=== PATIENT | male | born 1990 | race Caucasian/White ===

== ENCOUNTER 2017-12-06 06:10 | Emergency (ER) | payer BC, MEDICAID ==
[2017-12-06] MEDS ORDERED: Meclizine 12.5 MG Tab PO ONE (06:44)
[2017-12-06] MEDS ORDERED: Ondansetron 4 MG/2 ML SDV IVPUSH ONE (06:44)
[2017-12-06] MEDS ORDERED: Sodium Chloride 0.9% 1,000 ML IV ONE (06:44)
--- NOTE | 2017-12-06 06:51 | EDM.PDOC ---
<Sarah Tello Afshin - Last Filed: 12/06/17 06:45> ED HPI GENERAL MEDICAL PROBLEM - General Chief Complaint: Gastrointestinal Problem Stated Complaint: DIZZINESS/NAUSEA X 2 DAYS Time Seen by Provider: 12/06/17 06:32 Source of Information: Reports: Patient History Limitations: Reports: No Limitations - History of Present Illness INITIAL COMMENTS - FREE TEXT/NARRATIVE: 27 y/o M with remote hx Meniere's dz presents with severe dizziness x 2-3 days. Doesn't recall exact onset. Has severe nearly constant room spinning sensation. Waxes and wanes. Worse with head movements but also has dizziness at rest. He did have some alcoholic beverages 3 days ago, no additional provoking factors. He also has ringing in his left hear. States he has had ringing in that ear since being diagnosed with Meniere's as a teenager, but that the tinnitus is much worse now. Very nauseated, hasn't had much to drink and nothing to eat since this started. No vomiting. No diarrhea. No fever/recent illness. No abdominal pain. No additional complaint. - Related Data Allergies Allergy/AdvReac Type Severity Reaction Status Date / Time No Known Allergies Allergy Verified 12/06/17 06:17 Home Meds: Home Meds Meclizine [Antivert] 25 mg PO Q6H PRN #20 tab 12/06/17 [Rx] Ondansetron [Zofran ODT] 4 mg PO Q6H PRN #20 tab.dis 12/06/17 [Rx] Past Medical History HEENT History: Reports: Impaired Vision Other HEENT History: Wears glasses, Tinnitis Psychiatric History: Reports: Depression - Past Surgical History GI Surgical History: Reports: Hernia Repair/Other Social & Family History - Tobacco Use Smoking Status *Q: Current Every Day Smoker Years of Tobacco use: 5 Packs/Tins Daily: 0.1 - Alcohol Use Days Per Week of Alcohol Use: 3 Number of Drinks Per Day: 2 Total Drinks Per Week: 6 - Recreational Drug Use Recreational Drug Use: No ED ROS GENERAL - Review of Systems Review Of Systems: See Below Constitutional: Reports: Malaise. Denies: Fever HEENT: Reports: Vertigo Respiratory: Denies: Shortness of Breath, Cough Cardiovascular: Denies: Chest Pain Endocrine: Reports: No Symptoms GI/Abdominal: Denies: Abdominal Pain : Reports: No Symptoms Musculoskeletal: Reports: No Symptoms Skin: Reports: No Symptoms Neurological: Reports: Dizziness. Denies: Headache Psychiatric: Reports: No Symptoms ED EXAM, GI/ABD - Physical Exam Exam: See Below Exam Limited By: No Limitations General Appearance: Alert, Mild Distress Eyes: Bilateral: Normal Appearance, Nystagmus (horizontal ) Ears: Normal External Exam, Normal Canal, Hearing Grossly Normal, Normal TMs Nose: Normal Inspection Throat/Mouth: Normal Inspection, Normal Oropharynx, Normal Voice Head: Atraumatic, Normocephalic Neck: Normal Inspection Respiratory/Chest: No Respiratory Distress, Lungs Clear, Normal Breath Sounds Cardiovascular: Normal Peripheral Pulses, Regular Rate, Rhythm GI/Abdominal Exam: Soft Back Exam: Normal Inspection Extremities: Normal Inspection Neurological: Alert, Oriented, CN II-XII Intact, Normal Cognition, No Motor/ Sensory Deficits Psychiatric: Normal Affect, Normal Mood Skin Exam: Warm, Dry, Intact, Normal Color, No Rash Course - Vital Signs Last Recorded V/S: Last Vital Signs Temp 96.3 F 12/06/17 06:17 Pulse 111 H 12/06/17 06:17 Resp 16 12/06/17 06:17 BP 174/112 H 12/06/17 06:17 Pulse Ox 100 12/06/17 06:17 - Orders/Labs/Meds Meds: Medications Discontinued Medications Generic Name Dose Route Start Last Admin Trade Name Adenq PRN Reason Stop Dose Admin Diazepam 10 mg 12/06/17 06:44 12/06/17 06:56 Valium IVPUSH 12/06/17 06:45 10 mg ONETIME ONE Administration Sodium Chloride 1,000 mls @ 1,000 mls/hr 12/06/17 06:44 12/06/17 06:53 Normal Saline IV 12/06/17 07:43 1,000 mls/hr ONETIME ONE Administration Meclizine HCl 25 mg 12/06/17 06:44 12/06/17 06:54 Antivert PO 12/06/17 06:45 25 mg ONETIME ONE Administration Ondansetron HCl 4 mg 12/06/17 06:44 12/06/17 06:53 Zofran IVPUSH 12/06/17 06:45 4 mg ONETIME ONE Administration - Re-Assessments/Exams Free Text/Narrative Re-Assessment/Exam: 12/06/17 06:49 Severe dizziness/nausea/tinnitus in patient with prior history of Meneire's disease. Suspect exacerbation of the same. States he used to be sensitive to caffeine and salt and was able to avoid exacerbations by controlling his diet. Today his symptoms are severe enough that I will treat with IV diazepam, zofran , meclizine, and IV fluids. Will sign out to Dr. Diaz who can reevaluate him after meds. Departure - Departure Disposition: Home, Self-Care 01 Clinical Impression: Vertigo - Discharge Information Prescriptions: Meclizine [Antivert] 25 mg PO Q6H PRN #20 tab PRN Reason: Dizziness Ondansetron [Zofran ODT] 4 mg PO Q6H PRN #20 tab.dis PRN Reason: Nausea\vomiting Referrals: PCP,None [Primary Care Provider] - Thomas Branch MD [Ordering Only Provider] - Forms: ED Department Discharge, ED Return to Work/School Form Additional Instructions: Drink plenty of fluids. Take the zofran every 6 hours as needed for nausea and vomiting. Take the antivert every 6 hours as needed for dizziness. Follow up with Dr Branch. He is an ENT doctor in [place]. Please return if you are worse. <Eugenio Diaz - Last Filed: 12/06/17 08:34> Course - Re-Assessments/Exams Free Text/Narrative Re-Assessment/Exam: 12/06/17 08:[address] Tello. The patient is feeling better. I will discharge him home on some antivert and zofran. Departure - Departure Time of Disposition: 08:30 Condition: Good
== END 2017-12-06 08:45 | disposition home or self-care (01) ==
LOC: JD.ED 06:10
DX: R42 Dizziness and giddiness (principal); F17.210 Nicotine dependence, cigarettes, uncomplicated
CPT/HCPCS: 96361; 96374; 96375; 99284; A9270; J2405; J3360; J7040

== ENCOUNTER 2018-01-22 13:10 | Emergency (ER) | payer BC ==
[2018-01-22] MEDS ORDERED: Ondansetron 4 MG Tab.DIS PO ONE (13:53)
[2018-01-22] MEDS ORDERED: Sodium Chloride 0.9% 10 ML Syringe FLUSH PRN (14:14)
[2018-01-22] MEDS ORDERED: Famotidine 20 MG/2 ML SDV IVPUSH ONE (14:14)
[2018-01-22] MEDS ORDERED: Sodium Chloride 0.9% 1,000 ML IV SCH (14:15)
--- NOTE | 2018-01-22 16:21 | EDM.PDOC ---
ED HPI GENERAL MEDICAL PROBLEM - General Chief Complaint: Gastrointestinal Problem Stated Complaint: VOMITING BLOOD AND DIZZY Time Seen by Provider: 01/22/18 13:52 Source of Information: Reports: Patient, RN Notes Reviewed - History of Present Illness INITIAL COMMENTS - FREE TEXT/NARRATIVE: 27-year-old male has been ill for about the past 4 days with upper abdominal discomfort, nausea and vomiting. His been no diarrhea. In tenderness to be nauseated today, not able to eat much. He has not vomited today. He does feel some burning discomfort of his upper mid abdomen at this time. Mouth feels dry. Abdominal Pain Score (Numeric/FACES): 0 - Related Data Allergies Allergy/AdvReac Type Severity Reaction Status Date / Time No Known Allergies Allergy Verified 01/22/18 13:45 Home Meds: Home Meds . [No Known Home Meds] 01/22/18 [History] Past Medical History HEENT History: Reports: Impaired Vision Other HEENT History: Wears glasses, Tinnitis Psychiatric History: Reports: Anxiety, Depression - Past Surgical History GI Surgical History: Reports: Hernia Repair/Other Social & Family History - Tobacco Use Smoking Status *Q: Never Smoker Years of Tobacco use: 5 Packs/Tins Daily: 0.1 - Alcohol Use Days Per Week of Alcohol Use: 3 Number of Drinks Per Day: 2 Total Drinks Per Week: 6 - Recreational Drug Use Recreational Drug Use: No ED ROS GENERAL - Review of Systems Review Of Systems: See Below Constitutional: Denies: Fever, Chills, Diaphoresis HEENT: Denies: Throat Pain Respiratory: Denies: Shortness of Breath, Pleuritic Chest Pain Cardiovascular: Denies: Chest Pain GI/Abdominal: Reports: Abdominal Pain, Nausea, Vomiting. Denies: Diarrhea Musculoskeletal: Denies: Back Pain Skin: Reports: No Symptoms Neurological: Reports: Dizziness (Gone) ED EXAM, GI/ABD - Physical Exam Exam: See Below General Appearance: Alert, No Apparent Distress Eyes: Bilateral: Normal Appearance Throat/Mouth: Other Head: No: Facial Swelling (Oral mucosa is dry) Neck: Supple, Full Range of Motion Respiratory/Chest: No Respiratory Distress, Lungs Clear, Normal Breath Sounds Cardiovascular: Regular Rate, Rhythm GI/Abdominal Exam: Soft, Tender (There is diffuse tenderness of the upper mid abdomen, lower abdomen soft and nontender). No: Guarding, Rebound Back Exam: No: CVA Tenderness (L), CVA Tenderness (R) Extremities: Normal Inspection, Normal Range of Motion Neurological: Alert, Oriented, No Motor/Sensory Deficits Skin Exam: Warm, Dry, Normal Color Course - Vital Signs Last Recorded V/S: Last Vital Signs Temp 96.8 F 01/22/18 13:45 Pulse 102 H 01/22/18 13:45 Resp BP 136/101 H 01/22/18 13:45 Pulse Ox 96 01/22/18 13:45 - Orders/Labs/Meds Orders: Active Orders 24 hr Category Date Time Status Peripheral IV Care [RC] . DIRECTED Care 01/22/18 14:15 Active Peripheral IV Insertion Adult [OM.PC] Stat Oth 01/22/18 14:14 Ordered Labs: Laboratory Tests 01/22/18 01/22/18 Range/Units 14:19 14:19 WBC 8.56 (4.23-9.07) K/mm3 RBC 5.76 (4.63-6.08) M/mm3 Hgb 16.6 (13.7-17.5) gm/L Hct 47.0 (40.1-51.0) % MCV 81.6 (79.0-92.2) fl MCH 28.8 (25.7-32.2) pg MCHC 35.3 (32.2-35.5) g/dl RDW Std Deviation 39.8 (35.1-43.9) fL Plt Count 306 (163-337) K/mm3 MPV 8.7 L (9.4-12.3) fl Neut % (Auto) 70.6 H (34.0-67.9) % Lymph % (Auto) 20.6 L (21.8-53.1) % Mcdonald % (Auto) 8.3 (5.3-12.2) % Eos % (Auto) 0 L (0.8-7.0) Baso % (Auto) 0.1 (0.1-1.2) % Neut # (Auto) 6.05 H (1.78-5.38) K/mm3 Lymph # (Auto) 1.76 (1.32-3.57) K/mm3 Mcdonald # (Auto) 0.71 (0.30-0.82) K/mm3 Eos # (Auto) 0.00 L (0.04-0.54) K/mm3 Baso # (Auto) 0.01 (0.01-0.08) K/mm3 Sodium 143 (136-145) mEq/L Potassium 3.8 (3.5-5.1) mEq/L Chloride 105 (98-107) mEq/L Carbon Dioxide 25 (21-32) mEq/L Anion Gap 16.8 H (5-15) BUN 20 H (7-18) mg/dL Creatinine 1.0 (0.7-1.3) mg/dL Est Cr Clr Drug Dosing 109.98 mL/min Estimated GFR (MDRD) > 60 (>60) mL/min BUN/Creatinine Ratio 20.0 H (14-18) Glucose 102 (74-106) mg/dL Calcium 9.6 (8.5-10.1) mg/dL Total Bilirubin 1.0 (0.2-1.0) mg/dL AST 26 (15-37) U/L ALT 87 H (16-63) U/L Alkaline Phosphatase 64 (46-116) U/L Total Protein 8.5 H (6.4-8.2) g/dl Albumin 4.6 (3.4-5.0) g/dl Globulin 3.9 gm/dL Albumin/Globulin Ratio 1.2 (1-2) Lipase 91 (73-393) U/L Meds: Medications Discontinued Medications Generic Name Dose Route Start Last Admin Trade Name Freq PRN Reason Stop Dose Admin Famotidine 20 mg 01/22/18 14:14 01/22/18 14:25 Pepcid IVPUSH 01/22/18 14:15 20 mg ONETIME ONE Administration Sodium Chloride 1,000 mls @ 999 mls/hr 01/22/18 14:15 01/22/18 14:24 Normal Saline IV 999 mls/hr ONETIME RBUA Administration Ondansetron HCl 4 mg 01/22/18 13:53 01/22/18 14:10 Zofran Odt PO 01/22/18 13:54 4 mg ONETIME ONE Administration Sodium Chloride 10 ml 01/22/18 14:14 01/22/18 14:25 Saline Flush FLUSH 10 ml ASDIRECTED PRN Administration Keep Vein Open Departure - Departure Time of Disposition: 16:19 Disposition: Home, Self-Care 01 Condition: Fair Clinical Impression: Gastritis Qualifiers: Gastritis type: unspecified gastritis Chronicity: unspecified Gastritis bleeding: without bleeding Qualified Code(s): K29.70 - Gastritis, unspecified, without bleeding Vomiting Qualifiers: Vomiting type: unspecified Vomiting Intractability: non-intractable - Discharge Information Instructions: Gastritis, Adult, [id number] Referrals: PCP,None [Primary Care Provider] - Forms: ED Department Discharge, ED Return to Work/School Form Additional Instructions: Clear liquids until late this evening, then very careful bland diet as tolerated , avoid all fatty and spicy foods for now, avoid milk and dairy products for a couple of days. Zantac to twice daily for the next 1-2 weeks, Zofran if needed for any further nausea or vomiting, follow-up clinic if not much better and if not getting back to normal within 3-4 days as expected, return to ED as needed if symptoms worsening in any way. - My Orders Last 24 Hours: My Active Orders 01/22/18 14:14 Peripheral IV Insertion Adult [OM.PC] Stat 01/22/18 14:15 Peripheral IV Care [RC] . DIRECTED - Assessment/Plan Last 24 Hours: My Active Orders 01/22/18 14:14 Peripheral IV Insertion Adult [OM.PC] Stat 01/22/18 14:15 Peripheral IV Care [RC] . DIRECTED
== END 2018-01-22 16:25 | disposition home or self-care (01) ==
LOC: JD.ED 13:10
DX: K29.70 Gastritis, unspecified, without bleeding (principal); F41.9 Anxiety disorder, unspecified; F32.9 Major depressive disorder, single episode, unspecified
CPT/HCPCS: 36415; 80053; 83690; 85025; 96361; 96374; 99284; A9270; J7040; J7050; 99283

== ENCOUNTER 2018-10-06 06:09 | Emergency (ER) | payer BC ==
--- NOTE | 2018-10-06 07:03 | EDM.PDOC ---
ED HPI GENERAL MEDICAL PROBLEM - General Chief Complaint: General Stated Complaint: DIZZY/NAUSEATED Time Seen by Provider: 10/06/18 06:31 Source of Information: Reports: Patient, RN Notes Reviewed History Limitations: Reports: No Limitations - History of Present Illness INITIAL COMMENTS - FREE TEXT/NARRATIVE: The patient states that he has had a history of tinnitus since he was a child, and recurrent episodes of vertigo with nausea and sometimes vomiting since he was a teenager. He states that he has previously been diagnosed with Mnire disease, although upon testing by an ENT (Dr. Victoria?), there is some question over whether or not he has it. He has been treated with meclizine in the past, with success. The patient now presents to the ED stating that he has had vertiginous symptoms since this past 10/02/2017, but that it is much worse today, along with nausea and emesis since 03:00 this morning. His vertigo is worse in the morning. He states that he is usually able to walk around for about 5 minutes, and it will resolve, but not today. The patient has chronic tinnitus, that is no worse than usual. He has a decreased hearing in both ears, worse on the left than the right. No recent illness or fever. Here in the ED, with the patient lying on a gurney, he states that his vertigo is quite minimal, and he has no nausea. The patient does not have a PCP. - Related Data Allergies Allergy/AdvReac Type Severity Reaction Status Date / Time No Known Allergies Allergy Verified 01/22/18 13:45 Home Meds: Home Meds Meclizine [Antivert] 1 tab PO Q6H PRN #40 tab 10/06/18 [Rx] Ondansetron [Zofran ODT] 1 tab PO Q8H PRN #10 tab.dis 10/06/18 [Rx] Past Medical History HEENT History: Reports: Impaired Vision, Other (See Below) (Mnire disease, likely) Other HEENT History: Wears glasses Musculoskeletal History: Reports: Back Pain, Chronic Psychiatric History: Reports: Anxiety (untreated since February 2018), Depression ( untreated since February 2018) Endocrine/Metabolic History: Reports: Obesity/BMI 30+ - Past Surgical History HEENT Surgical History: Reports: Oral Surgery (wisdom teeth extraction) GI Surgical History: Reports: Hernia, Inguinal (as an infant) Social & Family History - Family History Family Medical History: Noncontributory - Tobacco Use Smoking Status *Q: Former Smoker Tobacco Use Within Last Twelve Months: Smokeless Tobacco (Chews 3 pinches per day) Years of Tobacco use: 8 Packs/Tins Daily: 0.3 Month/Year Tobacco Last Used: Quit 2016 - Caffeine Use Caffeine Use: Reports: None - Alcohol Use Alcohol Use History: Yes Alcohol Use Frequency: Socially (1-2 beers per day) - Recreational Drug Use Recreational Drug Use: Yes Drug Use in Last 12 Months: No Recreational Drug Type: Reports: Marijuana/Hashish (last smoked around 2013) - Living Situation & Occupation Living situation: Reports: , Alone 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 ED EXAM, GENERAL - Physical Exam Exam: See Below Exam Limited By: No Limitations General Appearance: Alert, WD/WN, No Apparent Distress Eye Exam: Bilateral Eye: EOMI, Normal Inspection, PERRL Ears: Normal External Exam, Normal Canal, Normal TMs Nose: Normal Inspection, Normal Mucosa, No Blood Throat/Mouth: Normal Inspection, Normal Lips, Normal Teeth, Normal Gums, Normal Oropharynx, Normal Voice, No Airway Compromise Head: Atraumatic, Normocephalic Neck: Normal Inspection, Supple, Non-Tender, Full Range of Motion. No: Lymphadenopathy (L), Lymphadenopathy (R) Respiratory/Chest: No Respiratory Distress, Lungs Clear, Normal Breath Sounds, No Accessory Muscle Use Cardiovascular: Normal Peripheral Pulses, Regular Rate, Rhythm, No Gallop, No JVD, No Murmur, No Rub Peripheral Pulses: 4+: Radial (L), Radial (R) GI/Abdominal: Normal Bowel Sounds, Soft, Non-Tender, No Organomegaly, No Distention, No Abnormal Bruit, No Mass, Other (Obese) (Male) Exam: Deferred Rectal (Males) Exam: Deferred Back Exam: Normal Inspection, Full Range of Motion, NT Extremities: Normal Inspection, Normal Range of Motion, Normal Capillary Refill Neurological: Alert, Oriented, CN II-XII Intact, Normal Cognition, No Motor/ Sensory Deficits, Other (Cathryn-Hallpike maneuvers failed to induce either nystagmus or vertigo, bilaterally) Psychiatric: Normal Affect Skin Exam: Warm, Dry, Intact, Normal Color, No Rash Course - Vital Signs Last Recorded V/S: Last Vital Signs Temp 36.6 C 10/06/18 06:21 Pulse 119 H 10/06/18 06:21 Resp 18 10/06/18 06:21 BP 164/111 H 10/06/18 06:21 Pulse Ox 97 10/06/18 06:21 - Orders/Labs/Meds Orders: Active Orders 24 hr Category Date Time Status Meclizine [Antivert] Med 10/06/18 06:57 Stat 25 mg PO ONETIME STA - Re-Assessments/Exams Free Text/Narrative Re-Assessment/Exam: 10/06/18 06:58 The patient appears to be suffering from a flare of his Mnire disease. We discussed dietary and behavioral modifications that might improve his symptoms, such as trying to limit dietary intake of salt and MSG, caffeine and alcohol, and have the patient quit chewing tobacco. For today's purposes, the patient will receive a dose of meclizine here in the ED, and I will prescribe both meclizine and Zofran. If these measures do not help, I would like him to follow- up with his ENT, for consideration of diuretics and/or glucocorticoids. Departure - Departure Time of Disposition: 07:00 Disposition: Home, Self-Care 01 Condition: Fair Clinical Impression: Mnire's disease - Discharge Information *PRESCRIPTION DRUG MONITORING PROGRAM REVIEWED*: Not Applicable *COPY OF PRESCRIPTION DRUG MONITORING REPORT IN PATIENT KEL: Not Applicable Referrals: PCP,None [Primary Care Provider] - Additional Instructions: You were seen in the emergency room for vertigo (the sensation that the room is spinning) and nausea with vomiting. Your symptoms are consistent with an exacerbation of Mnire disease. You have been started on the anti-vertigo medicine meclizine (Antivert). A prescription for Antivert, along with a prescription for the anti-nausea medicine Zofran, has been sent to the [facility], [address] [place] [address]. Take one tablet of meclizine up to every 6 hours, as needed for vertigo. Meclizine may cause sleepiness, so use caution if driving or operating heavy machinery. Dissolve one tablet of Zofran on your tongue up to every 8 hours, as needed for nausea/vomiting. As discussed, your symptoms may improve if you consume: A low-salt diet (no more than 2-3 g per day), as well as low MSG A low caffeine diet (no more than 1 caffeinated beverage per day) A low alcohol diet (no more than 1 alcoholic beverage per day) Eliminate nicotine, including chewing tobacco Reduce stress in your life If your symptoms persist, despite meclizine and dietary changes, please follow- up with your ENT to discuss further options. If any other problems, please do not hesitate to return to the ER. - My Orders Last 24 Hours: My Active Orders 10/06/18 06:57 Meclizine [Antivert] 25 mg PO ONETIME STA - Assessment/Plan Last 24 Hours: My Active Orders 10/06/18 06:57 Meclizine [Antivert] 25 mg PO ONETIME STA
== END 2018-10-06 07:25 | disposition home or self-care (01) ==
LOC: JD.ED 06:09
DX: H81.03 Meniere's disease, bilateral (principal); Z87.891 Personal history of nicotine dependence; Z98.890 Other specified postprocedural states
CPT/HCPCS: 99283; A9270

== ENCOUNTER 2018-11-28 05:39 | Emergency (ER) | payer BC ==
--- NOTE | 2018-11-28 06:08 | EDM.PDOC ---
ED HPI GENERAL MEDICAL PROBLEM - General Chief Complaint: General Stated Complaint: VERDIGO/DIZZY FOR 6 DAYS Time Seen by Provider: 11/28/18 05:47 - History of Present Illness INITIAL COMMENTS - FREE TEXT/NARRATIVE: 28-year-old male presents emergency room with dizziness for the last 6 days. he has tried meclizine up to twice a day with minimal success. Patient has a history of Mnire's disease. He has not followed up with scissors and throat doctor in quite some time. Patient has chronic tinnitus. The patient has his symptoms aggravated by change in position usually from lying to sitting or sitting to standing turning right to left does not seem to make it much worse. Patient denies any recent illness. - Related Data Allergies Allergy/AdvReac Type Severity Reaction Status Date / Time No Known Allergies Allergy Verified 11/28/18 05:49 Home Meds: Home Meds Meclizine [Antivert] 1 tab PO Q6H PRN #40 tab 10/06/18 [Rx] Ondansetron [Zofran ODT] 1 tab PO Q8H PRN #10 tab.dis 10/06/18 [Rx] Meclizine [Antivert] 25 mg PO Q6H PRN #30 tab 11/28/18 [Rx] Past Medical History HEENT History: Reports: Impaired Vision, Other (See Below) Other HEENT History: Wears glasses Musculoskeletal History: Reports: Back Pain, Chronic Neurological History: Reports: Migraines Psychiatric History: Reports: Anxiety, Depression Endocrine/Metabolic History: Reports: Obesity/BMI 30+ - Past Surgical History HEENT Surgical History: Reports: Oral Surgery GI Surgical History: Reports: Hernia, Inguinal Social & Family History - Family History Family Medical History: Noncontributory - Tobacco Use Smoking Status *Q: Never Smoker - Caffeine Use Caffeine Use: Reports: Coffee, Soda - Recreational Drug Use Recreational Drug Use: Yes Drug Use in Last 12 Months: No Recreational Drug Type: Reports: Marijuana/Hashish - Living Situation & Occupation Living situation: Reports: , Alone 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 Denies: Ear Discharge, Ear Pain Respiratory: Reports: No Symptoms Cardiovascular: Reports: No Symptoms GI/Abdominal: Reports: Nausea. Denies: Abdominal Pain ED EXAM, GENERAL - Physical Exam Exam: See Below Exam Limited By: No Limitations General Appearance: Alert, No Apparent Distress, Other (Hallpike's maneuver is negative for dizziness or nystagmus) Eye Exam: Bilateral Eye: Normal Inspection Ears: Normal External Exam, Normal Canal, Normal TMs Nose: Normal Inspection, Normal Mucosa, No Blood Throat/Mouth: Normal Inspection, Normal Lips, Normal Teeth, Normal Gums, Normal Oropharynx, Normal Voice, No Airway Compromise Head: Atraumatic, Normocephalic Neck: Normal Inspection, Supple, Non-Tender, Full Range of Motion Respiratory/Chest: No Respiratory Distress, Lungs Clear, Normal Breath Sounds Cardiovascular: Regular Rate, Rhythm, No Edema Course - Vital Signs Last Recorded V/S: Last Vital Signs Temp 36.4 C 11/28/18 05:45 Pulse 114 H 11/28/18 05:45 Resp 20 11/28/18 05:45 BP 152/107 H 11/28/18 05:45 Pulse Ox 97 11/28/18 05:45 Departure - Departure Time of Disposition: 06:08 Disposition: Home, Self-Care 01 Clinical Impression: Dizziness - Discharge Information Prescriptions: Meclizine [Antivert] 25 mg PO Q6H PRN #30 tab PRN Reason: Dizziness Referrals: PCP,None [Primary Care Provider] - Forms: ED Department Discharge Additional Instructions: Return to the emergency room if any questions or problems. Establish with a fisher eel spear. Use meclizine as directed.
== END 2018-11-28 06:30 | disposition home or self-care (01) ==
LOC: JD.ED 05:39
DX: R42 Dizziness and giddiness (principal); F41.9 Anxiety disorder, unspecified; Z79.899 Other long term (current) drug therapy
CPT/HCPCS: 99283

== ENCOUNTER 2019-08-22 10:25 | Emergency (ER) | payer BC, OTHER ==
[2019-08-22] MEDS ORDERED: FLU Vacc QS2019-20(6MOS+)/PF 60 MCG/0.5 ML SYRINGE IM ONE (11:00)
--- NOTE | 2019-08-22 12:03 | EDM.PDOC ---
ED HPI GENERAL MEDICAL PROBLEM - General Chief Complaint: Cardiovascular Problem Stated Complaint: HIGH BLOOD PRESSURE AND LEG SPASMS Time Seen by Provider: 08/22/19 11:10 Source of Information: Reports: Patient, RN Notes Reviewed History Limitations: Reports: No Limitations - History of Present Illness INITIAL COMMENTS - FREE TEXT/NARRATIVE: Patient is a 29-year-old male who presents to the ED for the evaluation of increased blood pressure reading, and right leg twitching. The patient went to the [facility] for evaluation, as he states his primary care provider is Dr. Corbin, but was sent to the ER for further evaluation. Patient states that his blood pressure at that clinic was 158/120. Patient's blood pressure at our ER at time of triage is 146/108, and this continues to fall as the patient is resting in the room. Patient notes that he has been on hydrochlorothiazide/triamterene 25/37.5 milligrams, for around for 4 months now. The patient notes that the leg twitching started after he started taking this medication. He was started on this medication due to increased blood pressure readings, and also his history of Mnire's disease, his primary care physician thought maybe would help his dizziness. The patient notes that he did feel somewhat dizzy this morning, and did take his dose of meclizine, this seemed to help that. The patient states that his right leg feels weak at times , as the twitching causes lots of muscle spasms. He notes these are not painful however. He further denies any chest pain or shortness of breath, or any low back pain. - Related Data Allergies Allergy/AdvReac Type Severity Reaction Status Date / Time No Known Allergies Allergy Verified 08/22/19 10:42 Home Meds: Home Meds Meclizine [Antivert] 25 mg PO Q6H PRN #30 tab 11/28/18 [Rx] HCTZ/Triamterene [Dyazide 25-37.5 MG] 1 cap PO DAILY 08/22/19 [History] LORazepam 0.5 mg PO DAILY PRN 08/22/19 [History] Lactobacillus Acidophilus [Probiotic] 1 each PO DAILY 08/22/19 [History] Magnesium Chloride [Slow-Mag] 71.5 mg PO BID #20 tablet. 08/22/19 [Rx] Multivitamin [Multivitamins] 1 each PO DAILY 08/22/19 [History] Orphenadrine [Norflex] 100 mg PO BID PRN #20 tab 08/22/19 [Rx] PARoxetine [Paxil] 20 mg PO DAILY 08/22/19 [History] Past Medical History HEENT History: Reports: Impaired Vision Other HEENT History: Wears glasses Cardiovascular History: Reports: Hypertension Musculoskeletal History: Reports: Back Pain, Chronic Neurological History: Reports: Migraines Psychiatric History: Reports: Anxiety, Depression Endocrine/Metabolic History: Reports: Obesity/BMI 30+ - Past Surgical History HEENT Surgical History: Reports: Oral Surgery GI Surgical History: Reports: Hernia, Inguinal Social & Family History - Family History Family Medical History: Noncontributory - Tobacco Use Smoking Status *Q: Never Smoker - Caffeine Use Caffeine Use: Reports: Coffee, Soda - Recreational Drug Use Recreational Drug Use: No - Living Situation & Occupation Living situation: Reports: , Alone 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 Denies: Numbness, Tingling ED EXAM, GENERAL - Physical Exam Exam: See Below Exam Limited By: No Limitations General Appearance: Alert, WD/WN, No Apparent Distress Eye Exam: Bilateral Eye: EOMI, Normal Inspection, PERRL Throat/Mouth: Normal Inspection, Normal Lips, Normal Teeth, Normal Gums, Normal Oropharynx, Normal Voice, No Airway Compromise Head: Atraumatic, Normocephalic Neck: Normal Inspection Respiratory/Chest: No Respiratory Distress, Lungs Clear, Normal Breath Sounds, No Accessory Muscle Use, Chest Non-Tender Cardiovascular: Normal Peripheral Pulses, Regular Rate, Rhythm, No Edema, No Murmur Peripheral Pulses: 3+: Radial (L), Radial (R) Extremities: Normal Inspection (Obvious muscle twitching noted to R quadriceps region of R leg. ), Normal Range of Motion, Normal Capillary Refill Neurological: Alert, Oriented, Normal Cognition, Normal Gait (ambulated to bathroom, his gait was cautious but steady.), No Motor/Sensory Deficits Psychiatric: Normal Affect, Normal Mood Skin Exam: Warm, Dry, Intact, Normal Color, No Rash Course - Vital Signs Last Recorded V/S: Last Vital Signs Temp 97.9 F 08/22/19 10:39 Pulse 89 08/22/19 10:39 Resp 17 08/22/19 10:39 BP 146/108 H 08/22/19 10:39 Pulse Ox 98 08/22/19 10:39 - Orders/Labs/Meds Orders: Active Orders 24 hr Category Date Time Status Influenza Vaccine Charge [RC] .DISCHARGE Care 08/22/19 10:46 Active Labs: Laboratory Tests 08/22/19 08/22/19 08/22/19 Range/Units 11:35 11:35 11:35 WBC 7.52 (4.23-9.07) K/mm3 RBC 5.38 (4.63-6.08) M/mm3 Hgb 15.9 (13.7-17.5) gm/dl Hct 44.8 (40.1-51.0) % MCV 83.3 (79.0-92.2) fl MCH 29.6 (25.7-32.2) pg MCHC 35.5 (32.2-35.5) g/dl RDW Std Deviation 41.9 (35.1-43.9) fL Plt Count 273 (163-337) K/mm3 MPV 8.5 L (9.4-12.3) fl Neut % (Auto) 61.4 (34.0-67.9) % Lymph % (Auto) 26.7 (21.8-53.1) % [place] % (Auto) 8.5 (5.3-12.2) % Eos % (Auto) 2.5 (0.8-7.0) Baso % (Auto) 0.9 (0.1-1.2) % Neut # (Auto) 4.61 (1.78-5.38) K/mm3 Lymph # (Auto) 2.01 (1.32-3.57) K/mm3 [place] # (Auto) 0.64 (0.30-0.82) K/mm3 Eos # (Auto) 0.19 (0.04-0.54) K/mm3 Baso # (Auto) 0.07 (0.01-0.08) K/mm3 Sodium 136 (136-145) mEq/L Potassium 4.1 (3.5-5.1) mEq/L Chloride 99 (98-107) mEq/L Carbon Dioxide 29 (21-32) mEq/L Anion Gap 12.1 (5-15) BUN 15 (7-18) mg/dL Creatinine 1.0 (0.7-1.3) mg/dL Est Cr Clr Drug Dosing 108.01 mL/min Estimated GFR (MDRD) > 60 (>60) mL/min BUN/Creatinine Ratio 15.0 (14-18) Glucose 97 (74-106) mg/dL Calcium 9.8 (8.5-10.1) mg/dL Magnesium 2.1 (1.8-2.4) mg/dl Total Bilirubin 1.0 (0.2-1.0) mg/dL AST 42 H (15-37) U/L ALT 112 H (16-63) U/L Alkaline Phosphatase 73 (46-116) U/L Total Protein 8.3 H (6.4-8.2) g/dl Albumin 4.5 (3.4-5.0) g/dl Globulin 3.8 gm/dL Albumin/Globulin Ratio 1.2 (1-2) Meds: Medications Discontinued Medications Generic Name Dose Route Start Last Admin Trade Name Freq PRN Reason Stop Dose Admin Influenza Virus Vaccine 60 mcg 08/22/19 11:00 08/22/19 11:29 Fluzone Quad [id number] Syringe IM 08/22/19 11:01 60 mcg .ONCE ONE Administration Orphenadrine Citrate 100 mg 08/22/19 12:15 08/22/19 12:35 Norflex PO 08/22/19 12:16 100 mg ONETIME ONE Administration - Re-Assessments/Exams Free Text/Narrative Re-Assessment/Exam: 08/22/19 12:06 Patient presents to the ED for the evaluation of increased blood pressure and right leg twitching. Did order CBC, CMP, and mag level for initial evaluation, patient's blood pressure is not acutely worrisome and will not require emergency treatment at today's visit. Will await lab results, to see if he has any electrolyte abnormalities that may need supplementation, that would be the source of his leg twitching. 08/22/19 13:02 Patient's labs did return, and are within normal limits. I will have the patient trial Slow-Mag twice daily, to see if this does not help relieve some of the twitching, and have him follow-up with his regular provider. He was given 1 Norflex at today's visit, and this did seem to help "quiet down" the twitching as well. Departure - Departure Time of Disposition: 13:03 Disposition: Home, Self-Care 01 Condition: Fair Clinical Impression: Elevated blood pressure reading in office with diagnosis of hypertension, Muscle spasm Prescriptions: Magnesium Chloride [Slow-Mag] 71.5 mg PO BID #20 tablet. Orphenadrine [Norflex] 100 mg PO BID PRN #20 tab PRN Reason: Spasms Instructions: Muscle Cramps and Spasms, [id number], Managing Your Hypertension Referrals: Savage Corbin MD [Primary Care Provider] - Forms: ED Department Discharge, ED Return to Work/School Form Additional Instructions: You were evaluated in the ED today for your right leg twitching and an elevated blood pressure reading. Your blood pressure did seem to come down while you were being evaluated in the ER, you are not given any change of medications for this, nor was anything provided for relief of high blood pressure at this time. You had a CBC and CMP drawn, there are no electrolyte abnormalities identified, however it is likely you might find some benefit from magnesium supplementation , try the Slow-Mag, 1 tab twice daily for the next 10 days or so, to see if this does not help the leg twitching. You were also given a script for muscle relaxers, this did seem to provide you some benefit at today's visit, Please take 1 tab BID as needed for muscle spasms. Recommend you follow-up with your regular provider, sometime next week as an ER follow-up. Please return to the ER if your symptoms change or worsen. - My Orders Last 24 Hours: My Active Orders 08/22/19 10:46 Influenza Vaccine Charge [RC] .DISCHARGE - Assessment/Plan Last 24 Hours: My Active Orders 08/22/19 10:46 Influenza Vaccine Charge [RC] .DISCHARGE
[2019-08-22] MEDS ORDERED: Orphenadrine 100 MG Tab.ER PO ONE (12:15)
== END 2019-08-22 13:34 | disposition home or self-care (01) ==
LOC: JD.ED 10:25
DX: I10 Essential (primary) hypertension (principal); M62.838 Other muscle spasm; F32.9 Major depressive disorder, single episode, unspecified; F41.9 Anxiety disorder, unspecified; E66.9 Obesity, unspecified; Z68.41 Body mass index [BMI] 40.0-44.9, adult; Z79.899 Other long term (current) drug therapy; Z23 Encounter for immunization
CPT/HCPCS: 36415; 80053; 83735; 85025; 90471; 90686; 99284; A9270; 99283; G0008

== ENCOUNTER 2020-02-13 13:33 | Emergency (ER) | payer OTHER, BC ==
[2020-02-13] MEDS ORDERED: Bupivacaine 0.5% 10 ML SDV INJECT ONE (13:55)
--- NOTE | 2020-02-13 14:00 | EDM.PDOC ---
<Talisha Perry - Last Filed: 02/13/20 14:32> ED HPI GENERAL MEDICAL PROBLEM - General Chief Complaint: Laceration Stated Complaint: LEFT THUMB LACERATION Time Seen by Provider: 02/13/20 13:40 - Related Data Allergies Allergy/AdvReac Type Severity Reaction Status Date / Time No Known Allergies Allergy Verified 02/13/20 13:50 Home Meds: Home Meds Meclizine [Antivert] 25 mg PO Q6H PRN #30 tab 11/28/18 [Rx] HCTZ/Triamterene [Dyazide 25-37.5 MG] 1 cap PO DAILY 08/22/19 [History] LORazepam 0.5 mg PO DAILY PRN 08/22/19 [History] Lactobacillus Acidophilus [Probiotic] 1 each PO DAILY 08/22/19 [History] Magnesium Chloride [Slow-Mag] 71.5 mg PO BID #20 tablet. 08/22/19 [Rx] Multivitamin [Multivitamins] 1 each PO DAILY 08/22/19 [History] Orphenadrine [Norflex] 100 mg PO BID PRN #20 tab 08/22/19 [Rx] PARoxetine [Paxil] 20 mg PO DAILY 08/22/19 [History] Doxycycline [Vibra-Tabs] 100 mg PO BID #20 tablet 02/13/20 [Rx] ED SKIN PROCEDURES - Laceration/Wound Repair Left Medial Digit - 1st (Thumb) Appearance: Superficial, Irregular, Clean Distal NVT: Neuro & Vascular Intact, No Tendon Injury Anesthetic Type: Digital Local Anesthesia - Bupivicaine (Marcaine): 0.5% Plain Local Anesthetic Volume: Other (6 ml) Skin Prep: Isopropyl Alcohol (Alcohol) Exploration/Debridement/Repair: No Foreign Material Found Closed with: Sutures Lac/Wound length In cm: 3.3 Suture Size: 4-0 # of Sutures: 5 Suture Type: Prolene Course - Vital Signs Last Recorded V/S: Last Vital Signs Temp 37.1 C 02/13/20 13:41 Pulse 118 H 02/13/20 13:41 Resp 18 02/13/20 13:41 BP Pulse Ox 98 02/13/20 13:41 - Orders/Labs/Meds Meds: Medications Discontinued Medications Generic Name Dose Route Start Last Admin Trade Name Freq PRN Reason Stop Dose Admin Bupivacaine HCl 10 ml 02/13/20 13:55 Sensorcaine-Mpf 0.5% INJECT 02/13/20 13:56 ONETIME ONE Departure - Departure Disposition: Home, Self-Care 01 Clinical Impression: Laceration of finger Qualifiers: Encounter type: initial encounter Finger: thumb Damage to nail status: without damage Foreign body presence: without foreign body Laterality: left Qualified Code(s): S61.012A - Laceration without foreign body of left thumb without damage to nail, initial encounter - Discharge Information Prescriptions: Doxycycline [Vibra-Tabs] 100 mg PO BID #20 tablet Referrals: Savage Corbin MD [Primary Care Provider] - Forms: ED Department Discharge Additional Instructions: Evaluation in the emergency room today in regards to a laceration to the distal aspect of your left thumb that occurred when you slipped with a jackknife. Flap laceration of the tip of the thumb and then laceration along the left nail fold to the dorsal aspect of the thumb. Digital block performed using different bupivacaine 0.5% and then wounds sutured under local anesthetic. X- ray of the left thumb is negative for bony injury. Admitted to home is to daily cleanse wound with soap and water. Showering is okay. Wound should not be soaked under water however until the sutures are removed. Then apply topical antibiotic such as bacitracin or Polysporin to the wound once daily and cover with a bandage to keep clean. Initial dressing that was placed in the ED can remain in place for the next 2 days and then be removed. Sutures will need to be removed in 10 days time. May use Motrin 600 mg every 6 hours as needed for pain relief. Suggest antibiotic doxycycline 100 mg twice daily for the next 10 days to present secondary infection since the laceration is on top of the bone in the distal aspect of the thumb. Please make an appointment to see your physician or provider in 10 days time to have the sutures removed. Sepsis Event Note - Focused Exam Vital Signs: Vital Signs Temp Pulse Resp Pulse Ox 02/13/20 13:41 37.1 C 118 H 18 98 Date Exam was Performed: 02/13/20 Time Exam was Performed: 14:32 <Alan Desouza - Last Filed: 02/13/20 14:42> ED HPI GENERAL MEDICAL PROBLEM - General Source of Information: Reports: Patient History Limitations: Reports: No Limitations - History of Present Illness INITIAL COMMENTS - FREE TEXT/NARRATIVE: 29-year-old male presents to the ED with a deep laceration to the radial aspect of his distal left thumb. Cut with a alton knife blade. Duration extends from the tip of the left thumb along the radial nail bed and almost to the DIP joint dorsally. Laceration at the tip is more of a flap laceration. It will require suture repair. He believes his last tetanus toxoid was within the last 10 years Onset: Today Onset Date: 02/13/20 Onset Time: 13:25 Duration: Minutes: Location: Reports: Upper Extremity, Left (Laceration to the distal aspect left thumb) Quality: Reports: Ache, Burning Severity: Mild Improves with: Reports: None Worsens with: Reports: Other Context: Reports: Trauma. 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.) Left Finger-Thumb Pain Score (Numeric/FACES): 4 Past Medical History HEENT History: Reports: Impaired Vision Other HEENT History: Wears glasses Cardiovascular History: Reports: Hypertension Musculoskeletal History: Reports: Back Pain, Chronic Neurological History: Reports: Migraines Psychiatric History: Reports: Anxiety, Depression (on Paxil once daily.) Endocrine/Metabolic History: Reports: Obesity/BMI 30+ - Past Surgical History HEENT Surgical History: Reports: Oral Surgery GI Surgical History: Reports: Hernia, Inguinal Social & Family History - Family History Family Medical History: Noncontributory - Caffeine Use Caffeine Use: Reports: Coffee, Soda - Living Situation & Occupation Living situation: Reports: , Alone 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) ED ROS GENERAL - Review of Systems Review Of Systems: See Below Constitutional: Reports: No Symptoms HEENT: Reports: No Symptoms Respiratory: Reports: No Symptoms Cardiovascular: Reports: Blood Pressure Problem Endocrine: Reports: No Symptoms GI/Abdominal: Reports: No Symptoms : Reports: No Symptoms Musculoskeletal: Reports: No Symptoms Skin: Reports: No Symptoms Neurological: Reports: No Symptoms Psychiatric: Reports: Depression Hematologic/Lymphatic: Reports: No Symptoms Immunologic: Reports: No Symptoms ED EXAM, SKIN/RASH Exam: See Below Exam Limited By: No Limitations General Appearance: Alert, Mild Distress, Other (Temperature is 37.1 heart rate 118 due to anxiety respiratory is 18 pulse ox 90% on room air.) Eye Exam: Bilateral Eye: Normal Inspection, PERRL Extremities: Other (Examination limited to the injured left thumb. He has a laceration to the radial aspect of the distal left thumb. Laceration is a flap laceration along the tip and volar aspect of the thumb and extends dorsally along the entire length of the lateral nail fold and approximately 3 mm into the dorsal skin inferior to the nailbed. Wound is no longer bleeding. Sensation is normal movement is normal no tendon injury) Neurological: Alert, Oriented, CN II-XII Intact, Normal Cognition Psychiatric: Anxious Skin: Warm, Dry, Normal Color, Other (Laceration radial aspect distal left thumb ) Location, Skin: Upper Extremity, Left (Left lateral thumb) Course - Orders/Labs/Meds Meds: Medications Discontinued Medications Generic Name Dose Route Start Last Admin Trade Name Freq PRN Reason Stop Dose Admin Bupivacaine HCl 10 ml 02/13/20 13:55 Sensorcaine-Mpf 0.5% INJECT 02/13/20 13:56 ONETIME ONE - Radiology Interpretation Free Text/Narrative:: 29-year-old male presents to the ED with a laceration to the radial aspect of his distal left thumb. This was self-inflicted accidentally with a Knife. Has a flap laceration of the distal or tip of the radial aspect of the thumb and then the laceration travels along the lateral nail fold dorsally to just inferior to the nailbed. Laceration length is approximately 2.5 cm. He will require repair under digital block. X-ray will be done as he had very sharp blades in his jackknife and good deal of force on the knife when he cut himself. Tetanus toxoid is felt to be up-to-date. - Re-Assessments/Exams Free Text/Narrative Re-Assessment/Exam: 02/13/20 14:37 x-ray of the left thumb shows no bony injury. Under digital block the wound was sutured above and below the nailbed using five 4-0 Ethilon sutures. Patient tolerated the procedure well. Sutures will be need to be removed in 10 days time. Departure - Departure Time of Disposition: 14:38 Condition: Fair - Discharge Information *PRESCRIPTION DRUG MONITORING PROGRAM REVIEWED*: Not Applicable *COPY OF PRESCRIPTION DRUG MONITORING REPORT IN PATIENT KEL: Not Applicable Sepsis Event Note - Evaluation Sepsis Screening Result: No Definite Risk - Focused Exam Date Exam was Performed: 02/13/20 Time Exam was Performed: 14:39
--- NOTE | 2020-02-13 14:12 | CR ---
Left thumb: 3 views centered to the left thumb were obtained. Comparison: No prior thumb study. No radiopaque foreign body is seen. Joint spaces are preserved. No fracture or other bony abnormality is seen. Impression: 1. Nothing acute seen on 3 view left thumb study. Diagnostic code #1 This report was dictated in MDT
== END 2020-02-13 15:00 | disposition home or self-care (01) ==
LOC: JD.ED 13:33
DX: S61.012A Laceration without foreign body of left thumb without damage to nail, initial encounter (principal); I10 Essential (primary) hypertension; E66.9 Obesity, unspecified; G43.909 Migraine, unspecified, not intractable, without status migrainosus; F41.9 Anxiety disorder, unspecified; F32.9 Major depressive disorder, single episode, unspecified; Z79.899 Other long term (current) drug therapy; W26.0XXA Contact with knife, initial encounter
CPT/HCPCS: 12002; 73140; 99283; J3490; 99282

== ENCOUNTER 2021-05-01 17:32 | Emergency (ER) | payer BC ==
[2021-05-01] MEDS ORDERED: Sodium Chloride 0.9% 10 ML Syringe FLUSH PRN (18:26)
[2021-05-01] MEDS ORDERED: Sodium Chloride 0.9% 1,000 ML IV STA (18:26)
[2021-05-01] MEDS ORDERED: Acetaminophen 325 MG Tab PO ONE (18:36)
--- NOTE | 2021-05-01 18:51 | EDM.PDOC ---
ED HPI GENERAL MEDICAL PROBLEM - General Chief Complaint: Fever Stated Complaint: FEVER/CHILLS/COUGH Time Seen by Provider: 05/01/21 18:19 Source of Information: Reports: Patient, RN Notes Reviewed History Limitations: Reports: No Limitations - History of Present Illness INITIAL COMMENTS - FREE TEXT/NARRATIVE: Patient is a 30-year-old male presenting to the emergency department with complaints of generalized body aches, cramping, decreased appetite, fatigue, mild cough, and mild nasal congestion. Symptoms began approximately 1 week ago with cold-like symptoms including cough and nasal congestion. Over the last 3 days, he has felt much more fatigued and been having generalized body aches and cramping. He has had a couple small episodes of diarrhea but states that he has not been eating much for the last few days. Occasional mild dizziness upon standing. He does not feel like he has been taking in enough fluids. Denies any vomiting or abdominal pain. He has no chronic underlying medical conditions. He did not receive Covid vaccination but has had no known contacts. Denies any chest pain or shortness of breath. - Related Data Allergies Allergy/AdvReac Type Severity Reaction Status Date / Time No Known Allergies Allergy Verified 02/13/20 13:50 Home Meds: Home Meds Meclizine [Antivert] 25 mg PO Q6H PRN #30 tab 11/28/18 [Rx] LORazepam 0.5 mg PO DAILY PRN 08/22/19 [History] Lactobacillus Acidophilus [Probiotic] 1 each PO DAILY 08/22/19 [History] Magnesium Chloride [Slow-Mag] 71.5 mg PO BID #20 tablet. 08/22/19 [Rx] Multivitamin [Multivitamins] 1 each PO DAILY 08/22/19 [History] PARoxetine [Paxil] 20 mg PO DAILY 08/22/19 [History] Losartan [Cozaar] 100 mg PO DAILY 05/01/21 [History] Olmesartan Medoxomil 40 mg PO DAILY 05/01/21 [History] hydroCHLOROthiazide [Hydrochlorothiazide] 12.5 mg PO DAILY 05/01/21 [History] Past Medical History HEENT History: Reports: Impaired Vision Other HEENT History: Wears glasses Cardiovascular History: Reports: Hypertension Musculoskeletal History: Reports: Back Pain, Chronic Neurological History: Reports: Migraines Psychiatric History: Reports: Anxiety, Depression Endocrine/Metabolic History: Reports: Obesity/BMI 30+ - Infectious Disease History Infectious Disease History: Reports: Novel Coronavirus - Past Surgical History HEENT Surgical History: Reports: Oral Surgery GI Surgical History: Reports: Hernia, Inguinal Male Surgical History: Reports: Circumcision Social & Family History - Family History Family Medical History: No Pertinent Family History - Tobacco Use Tobacco Use Status *Q: Current Every Day Tobacco User Years of Tobacco use: 10 Packs/Tins Daily: 0.1 - Caffeine Use Caffeine Use: Reports: Coffee - Recreational Drug Use Recreational Drug Use: No - Living Situation & Occupation Living situation: Reports: , Alone 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 Denies: Fever HEENT: Reports: Sinus Problem (Nasal congestion) Respiratory: Reports: Cough. Denies: Shortness of Breath, Pleuritic Chest Pain Cardiovascular: Reports: Lightheadedness. Denies: Chest Pain Endocrine: Reports: No Symptoms GI/Abdominal: Reports: Diarrhea, Decreased Appetite. Denies: Abdominal Pain, Nausea, Vomiting : Reports: No Symptoms Musculoskeletal: Reports: Other (Generalized body aches) Skin: Reports: No Symptoms Neurological: Reports: Dizziness. Denies: Headache Psychiatric: Reports: No Symptoms Hematologic/Lymphatic: Reports: No Symptoms Immunologic: Reports: No Symptoms ED EXAM, GENERAL - Physical Exam Exam: See Below Exam Limited By: No Limitations General Appearance: Alert, WD/WN, No Apparent Distress Respiratory/Chest: No Respiratory Distress, Lungs Clear, Normal Breath Sounds, No Accessory Muscle Use, Chest Non-Tender Cardiovascular: Normal Peripheral Pulses, Regular Rate, Rhythm, No Edema, No Gal lop, No JVD, No Murmur, No Rub, Tachycardia GI/Abdominal: Normal Bowel Sounds, Soft, Non-Tender, No Organomegaly, No Distention, No Abnormal Bruit, No Mass Neurological: Alert, Oriented, CN II-XII Intact, Normal Cognition, Normal Gait, Normal Reflexes, No Motor/Sensory Deficits Psychiatric: Normal Affect, Normal Mood Skin Exam: Dry, Intact, Normal Color, No Rash, Increased Warmth Lymphatic: No Adenopathy #1 Interpretation EKG Date: 05/01/21 Time: 18:46 Rhythm: NSR Rate (Beats/Min): 124 Park: LAD-Left Park Deviation P-Wave: Present QRS: Normal ST-T: Normal QT: Normal Course - Vital Signs Last Recorded V/S: Last Vital Signs Temp 96.6 F L 05/01/21 21:30 Pulse 110 H 05/01/21 21:30 Resp 23 H 05/01/21 21:30 BP 142/96 H 05/01/21 21:30 Pulse Ox 95 05/01/21 21:30 - Orders/Labs/Meds Orders: Active Orders 24 hr Category Date Time Status Peripheral IV Insertion Adult [OM.PC] Stat Oth 05/01/21 18:26 Ordered Labs: Laboratory Tests 05/01/21 05/01/21 05/01/21 Range/Units 17:45 18:50 18:50 WBC 6.38 (4.23-9.07) K/mm3 RBC 5.36 (4.63-6.08) M/mm3 Hgb 15.5 (13.7-17.5) gm/dl Hct 46.4 (40.1-51.0) % MCV 86.6 D (79.0-92.2) fl MCH 28.9 (25.7-32.2) pg MCHC 33.4 (32.2-35.5) g/dl RDW Std Deviation 43.1 (35.1-43.9) fL Plt Count 228 (163-337) K/mm3 MPV 8.9 L (9.4-12.3) fl Neut % (Auto) 57.6 (34.0-67.9) % Lymph % (Auto) 23.8 (21.8-53.1) % Dodge % (Auto) 18.0 H (5.3-12.2) % Eos % (Auto) 0.2 L (0.8-7.0) Baso % (Auto) 0.2 (0.1-1.2) % Neut # (Auto) 3.68 (1.78-5.38) K/mm3 Lymph # (Auto) 1.52 (1.32-3.57) K/mm3 Dodge # (Auto) 1.15 H (0.30-0.82) K/mm3 Eos # (Auto) 0.01 L (0.04-0.54) K/mm3 Baso # (Auto) 0.01 (0.01-0.08) K/mm3 Manual Slide Review Abnormal smear Sodium 141 (136-145) mEq/L Potassium 4.0 (3.5-5.1) mEq/L Chloride 103 (98-107) mEq/L Carbon Dioxide 29 (21-32) mEq/L Anion Gap 13.0 (5-15) BUN 15 (7-18) mg/dL Creatinine 1.2 (0.7-1.3) mg/dL Est Cr Clr Drug Dosing 89.19 mL/min Estimated GFR (MDRD) > 60 (>60) mL/min BUN/Creatinine Ratio 12.5 L (14-18) Glucose 90 (70-99) mg/dL Calcium 8.2 L D (8.5-10.1) mg/dL Magnesium 1.9 (1.8-2.4) mg/dL Total Bilirubin 0.9 (0.2-1.0) mg/dL AST 36 (15-37) U/L ALT 83 H (16-63) U/L Alkaline Phosphatase 65 (46-116) U/L C-Reactive Protein 0.5 (<1.0) mg/dL Total Protein 8.2 (6.4-8.2) g/dl Albumin 4.0 (3.4-5.0) g/dl Globulin 4.2 gm/dL Albumin/Globulin Ratio 1.0 (1-2) SARS-CoV-2 RNA (MARCO) Positive H (NEGATIVE) Meds: Medications Discontinued Medications Generic Name Dose Route Start Last Admin Trade Name Freq PRN Reason Stop Dose Admin Acetaminophen 975 mg 05/01/21 18:36 05/01/21 18:42 Acetaminophen 325 Mg Tab PO 05/01/21 18:37 975 mg NOW ONE Administration Diphenhydramine HCl 50 mg 05/01/21 18:53 Diphenhydramine 50 Mg/Ml Sdv IVPUSH ONETIME PRN hypersensitivity reaction Epinephrine HCl 0.3 mg 05/01/21 18:53 Epinephrine 1 Mg/Ml Sdv IM ONETIME PRN hypersensitivity reaction Famotidine 20 mg 05/01/21 18:53 Famotidine 20 Mg/2 Ml Sdv IVPUSH ONETIME PRN hypersensitivity reaction Sodium Chloride 1,000 mls @ 999 mls/hr 05/01/21 18:26 05/01/21 18:41 Normal Saline IV 05/01/21 19:26 999 mls/hr NOW STA Administration CASIRIVIMAB/IMDEVIMAB 10 ml/ 110 mls @ 220 mls/hr 05/01/21 18:53 05/01/21 19:52 Sodium Chloride IV 05/01/21 19:22 220 mls/hr ONETIME ONE Administration Methylprednisolone Sodium Succinate 125 mg 05/01/21 18:53 Methylprednisolone Sodium Succinate 125 Mg/2 Ml Sdv IVPUSH ONETIME PRN hypersensitivity reaction Sodium Chloride 10 ml 05/01/21 18:26 05/01/21 18:42 Sodium Chloride 0.9% 10 Ml Syringe FLUSH 10 ml ASDIRECTED PRN Administration Keep Vein Open Sodium Chloride 30 ml 05/01/21 19:00 Sodium Chloride 0.9% 10 Ml Syringe FLUSH ASDIRECTED RUBA - Re-Assessments/Exams Free Text/Narrative Re-Assessment/Exam: Patient is a 30-year-old male presenting to the emergency department with complaints of mild cough, body aches, decreased appetite, fatigue. On triage, patient was found to be tachycardic at 129. He is afebrile, however my exam feels much warmer than 97.9. Exam is otherwise unremarkable. Covid test was ordered by triage nurse and is currently pending however, my suspicion is quite high for this.. I have ordered blood work, EKG, 1 bolus of normal saline IV, and Tylenol 975 mg p.o. 05/01/21 18:50 Patient's Covid came back positive. Results discussed with patient. Based on patient's BMI of 46, he would qualify for treatment with monoclonal antibodies I have provided him information on monoclonal antibody treatment. He was reading through the patient handout and will decide if he would like to proceed with this or not. 05/01/21 18:52 Patient has decided to proceed with monoclonal antibody treatments. I have ordered Regeneron. I spoke with the patient to provide information about Regeneron treatment I offered them the ``Patient and Caregiver EUA Regeneron Fact Sheet to read and review I stated the drug has been approved by an emergency use authorization (EUA) process and has not fully been FDA reviewed or approved The patient meets the EUA requirements I discussed there are other potential treatment options that are currently not FDA approved to treat COVID-19. Offered opportunity to ask questions and all questions were answered Patient voiced understanding and agreed to proceed with treatment 05/01/21 21:25 Patient has completed his monoclonal antibody infusion and the waiting. With no adverse effects. He will be discharged home. Discharge instructions as documented. Departure - Departure Time of Disposition: 21:25 Disposition: Home, Self-Care 01 Condition: Good Clinical Impression: COVID-19 - Discharge Information *PRESCRIPTION DRUG MONITORING PROGRAM REVIEWED*: No *COPY OF PRESCRIPTION DRUG MONITORING REPORT IN PATIENT KEL: No Instructions: COVID-19, Fever, Adult, [id number], Prevent the Spread of COVID-19 if You Are Sick - [facility] Referrals: Savage Corbin MD [Primary Care Provider] - Forms: ED Department Discharge, ED Return to Work/School Form Additional Instructions: You were seen in the emergency department today for chills, body aches, decreased appetite, fatigue, and cough. Work-up included blood work, chest x- ray, EKG, and Covid test. Results of your work-up show that you were indeed positive for COVID-19. While in the ER, you received IV fluids, Tylenol, and monoclonal antibodies. Recommend that you go home and rest. You may continue to use Tylenol and ibuprofen as needed for discomfort. Ensure that you are taking an adequate amount of fluid. You must quarantine for 10 days from your onset of symptoms. [facility] Department of Health will be in contact with you for contact tracing. If you should experience any new or worsening symptoms of concern, please do not hesitate to return to the emergency department for reevaluation. Sepsis Event Note (ED) - Evaluation Sepsis Screening Result: Possible Sepsis Risk - My Orders Last 24 Hours: My Active Orders 05/01/21 18:26 Peripheral IV Insertion Adult [OM.PC] Stat - Assessment/Plan Last 24 Hours: My Active Orders 05/01/21 18:26 Peripheral IV Insertion Adult [OM.PC] Stat
[2021-05-01] MEDS ORDERED: diphenhydrAMINE 50 MG/ML SDV IVPUSH PRN (18:53)
[2021-05-01] MEDS ORDERED: methylPREDNISolone Sodium Succinate 125 MG/2 ML SDV IVPUSH PRN (18:53)
[2021-05-01] MEDS ORDERED: EPINEPHrine 1 MG/ML SDV IM PRN (18:53)
[2021-05-01] MEDS ORDERED: Famotidine 20 MG/2 ML SDV IVPUSH PRN (18:53)
[2021-05-01] MEDS ORDERED: Sodium Chloride 0.9% 10 ML Syringe FLUSH SCH (19:00)
--- NOTE | 2021-05-02 09:12 | CR ---
Chest: Portable view of the chest was obtained. Comparison: No prior chest imaging is available. Heart size and mediastinum are normal. Lungs are clear with no acute parenchymal change. No acute osseous abnormality is appreciated. Impression: 1. Nothing acute is seen on portable chest x-ray. Diagnostic code #1
== END 2021-05-01 21:44 | disposition home or self-care (01) ==
LOC: JD.ED 17:32
DX: U07.1 COVID-19 (principal); I10 Essential (primary) hypertension; E66.9 Obesity, unspecified; Z72.0 Tobacco use; Z79.899 Other long term (current) drug therapy; Z68.42 Body mass index [BMI] 45.0-49.9, adult
CPT/HCPCS: 36415; 71045; 80053; 83735; 85025; 86140; 87635; 93005; 99284; A9270; J7030; M0243; Q0243; 93010; U0002

== ENCOUNTER 2023-08-12 17:08 | Emergency (ER) | payer BC, MEDICAID ==
[2023-08-12] MEDS ORDERED: Sodium Chloride 0.9% 10 ML Syringe FLUSH PRN (17:52)
[2023-08-12] MEDS ORDERED: Dexamethasone 10 MG/ML SDV IVPUSH ONE (17:57)
[2023-08-12 18:08] LABS: BASOPHILS PERCENT AUTO 0.2 % (0.0-1.0); EOSINOPHILS ABSOLUTE AUTO 0.3 K/mm3 (0.0-0.4); EOSINOPHILS PERCENT AUTO 1.9 % (0.0-6.0); HEMATOCRIT 42.1 % (42.0-52.0); HEMOGLOBIN 14.2 gm/dl (14.0-18.0); IMMATURE GRAN ABSOLUTE AUTO 0.05 K/mm3 (0.00-0.05); IMMATURE GRAN PERCENT AUTO 0.4 % (0.0-0.4); LYMPHOCYTES ABSOLUTE AUTO 2.4 K/mm3 (1.0-4.8); LYMPHOCYTES PERCENT AUTO 17.5 % (24.0-44.0); MEAN CORPUSCULAR HEMOGLOBIN 29.6 pg (28.0-32.0); MEAN CORPUSCULAR HGB CONC 33.7 g/dl (32.0-36.0); MEAN CORPUSCULAR VOLUME 87.7 fl (83.0-99.0); MEAN PLATELET VOLUME 8.5 fl (9.4-12.4); MONOCYTES PERCENT AUTO 7.1 % (0.0-8.0); NEUTROPHILS PERCENT AUTO 72.9 % (41.0-71.0); PLATELET COUNT,PLT 282 K/mm3 (150-400); WHITE BLOOD CELL COUNT,WBC 13.73 K/mm3 (3.9-11.3)
[2023-08-12] MEDS ORDERED: Iopamidol 612 MG/ML 100 ML Bottle IVPUSH ONE (18:18)
[2023-08-12] MEDS ORDERED: Sodium Chloride 0.9% 10 ML SDV FLUSH ONE (18:18)
[2023-08-12 18:28] LABS: ALBUMIN 3.8 g/dl (3.4-5.0); ANION GAP 13.2 (5-15); BILIRUBIN TOTAL 0.6 mg/dL (0.2-1.0); BUN/CREATININE RATIO 14.4 (14-18); C-REACTIVE PROTEIN 3.3 mg/dL (<1.0); CREATININE 0.9 mg/dL (0.7-1.3); EST CRCL DRUG DOSING (CG) 115.65 mL/min; POTASSIUM,K 4.2 mEq/L (3.5-5.1); PROTEIN TOTAL,TP 7.6 g/dl (6.4-8.2)
[2023-08-12 18:45] LABS: CORONAVIRUS COVID-19 NAA NEGATIVE (NEGATIVE); INFLUENZA A NAA NEGATIVE (NEGATIVE); RESPIRATORY SYNCYTIAL VIR NAA NEGATIVE (NEGATIVE)
[2023-08-12] MEDS ORDERED: Ketorolac 30 MG/ML SDV IVPUSH ONE (19:40)
[2023-08-12] MEDS ORDERED: Amoxicillin/Clavulanate K 875-125 MG Tab PO ONE (19:40)
== END 2023-08-12 20:00 | disposition home or self-care (01) ==
LOC: JD.ED 17:08
DX: J03.90 Acute tonsillitis, unspecified (principal); I10 Essential (primary) hypertension; E66.9 Obesity, unspecified; Z68.42 Body mass index [BMI] 45.0-49.9, adult; Z87.891 Personal history of nicotine dependence; Z20.822 Contact with and (suspected) exposure to COVID-19; Z79.899 Other long term (current) drug therapy
CPT/HCPCS: 0241U; 36415; 70491; 70491-26; 80053; 85025; 86140; 87651-QW; 96374; 96375; 99284-25; A9270-GY; J1100; J1885; J3490; Q9967